=== PATIENT | male | born 1945 | race Hispanic/Latino ===

== ENCOUNTER 2018-12-21 13:12 | Outpatient (CLI) | payer MEDICARE ==
[2018-12-21 13:56] LABS: Alanine Aminotransferase 48 units/L (7-56); Albumin 4.3 g/dL (3.9-5); BUN/Creatinine Ratio 19; Blood Urea Nitrogen 17 mg/dL (9-20); Calcium 9.5 mg/dL (8.4-10.2); Hemolysis Index 13
== END 2018-12-21 13:13 | disposition home or self-care (01) ==
LOC: LAB 13:12
PROVIDERS: ATTEND Internal Medicine
DX: R53.83 Other fatigue (principal)
CPT/HCPCS: 36415; 80053